=== PATIENT | female | born 1950 | race Asian ===

== ENCOUNTER 2017-11-12 16:54 | Outpatient (CLI) | payer MEDICARE, OTHER | END 2017-11-12 16:55 | disposition critical access hospital (66) | LOC: EMS 16:54 | PROVIDERS: ATTEND Surgery | DX: R41.82 Altered mental status, unspecified (principal); R51 Headache; R73.09 Other abnormal glucose | CPT/HCPCS: A0425; A0427 ==

== ENCOUNTER 2017-11-12 17:13 | Emergency (ER) | payer MEDICARE, OTHER ==
[2017-11-12 17:45] LABS: BILIRUBIN,URINE NEGATIVE (NEGATIVE); GLUCOSE, URINE (UA) 500 mg/dL (NEGATIVE); KETONES,URINE (UA) NEGATIVE (NEGATIVE); LEUKOCYTE ESTERASE, URINE NEGATIVE (NEGATIVE); NITRITE,URINE NEGATIVE (NEGATIVE); OCCULT BLOOD,URINE TRACE-INTA (NEGATIVE); PROTEIN,URINE TRACE mg/dL (NEGATIVE); UROBILINOGEN,URINE 0.2 (NORMAL) E.U./dL (NORMAL)
[2017-11-12 17:48] LABS: CLARITY,URINE CLEAR (CLEAR)
[2017-11-12 17:55] LABS: BASOPHILS # (AUTO) 0.1 10^3/uL (0.0-0.1); EOSINOPHILS % (AUTO) 0.5 %; HGB - HEMOGLOBIN 13.6 g/dL (12.0-16.0); LYMPHOCYTES # (AUTO) 1.2 10^3/uL (1.5-3.5); LYMPHOCYTES % (AUTO) 18.4 %; MEAN CORPUSCULAR HEMOGLOBIN 29.4 pg (27.0-31.0); MEAN CORPUSCULAR HGB CONC 32.6 g/dL (32.0-36.0); MEAN PLATELET VOLUME 8.2 fL (7.9-10.8); MONOCYTES # (AUTO) 0.5 10^3/uL (0.0-1.0); NEUTROPHILS # (AUTO) 4.9 10^3/uL (1.5-6.6); NEUTROPHILS % (AUTO) 73.1 %; PLT - PLATELET COUNT 243 10^3/uL (130-450); RED BLOOD COUNT 4.64 10^6/uL (4.20-5.40); RED CELL DISTRIBUTION WIDTH 13.4 % (12.0-15.0); WHITE BLOOD COUNT 6.6 x10^3/uL (4.8-10.8)
[2017-11-12 18:06] LABS: ALBUMIN 3.9 g/dL (3.2-5.5); ALBUMIN/GLOBULIN RATIO 0.8 (1.0-2.2); BILIRUBIN,TOTAL 0.7 mg/dL (0.2-1.0); CALCIUM 8.5 mg/dL (8.5-10.3); TOTAL PROTEIN 8.5 g/dL (6.7-8.2)
--- NOTE | 2017-11-12 18:31 | ED Physician Documentation ---
History of Present Illness - Stated complaint Stated Complaint: Hypoglycemia - Chief complaint Chief Complaint: Neuro - History obtained from History obtained from: Patient, Family - History of Present Illness Timing: Today Pain level max: 0 Pain level now: 0 Improved by: D50 Worsened by: lantus - Additonal information Additional information: Patient is a 67 year old female who is on long acting insulin (Lantus). Took her dose this am and didn't eat today. Became unresponsive and found to be hypoglycemic. Given D50 with EMS. BG improved and now she is at her normal baseline mental status. Review of Systems Constitutional: denies: Fever, Chills Nose: denies: Rhinorrhea / runny nose, Congestion Throat: denies: Sore throat Cardiac: denies: Chest pain / pressure Respiratory: denies: Cough GI: denies: Nausea, Vomiting, Diarrhea Skin: denies: Rash Musculoskeletal: denies: Neck pain, Back pain Neurologic: denies: Focal weakness, Numbness, Head injury, LOC PD PAST MEDICAL HISTORY - Past Medical History Past Medical History: Yes Endocrine/Autoimmune: Type 2 diabetes - Past Surgical History Past Surgical History: No - Living Situation Living Situation: reports: With family Living Arrangement: reports: At home - Social History Does the pt smoke?: No Does the pt drink ETOH?: No Does the pt have substance abuse?: No - Family History Family history: reports: Non contributory PD ED PE NORMAL - Vitals Vital signs reviewed: Yes - General General: Alert and oriented X 3, No acute distress - HEENT HEENT: PERRL, Moist mucous membranes, Pharynx benign - Neck Neck: Supple, no meningeal sign - Cardiac Cardiac: RRR - Respiratory Respiratory: No respiratory distress, Clear bilaterally - Abdomen Abdomen: Soft, Non tender, Non distended - Back Back: No spinal TTP - Derm Derm: Warm and dry - Neuro Neuro: Alert and oriented X 3, 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5 Chloride 101 Carbon Dioxide 25 Anion Gap 10.0 BUN 17 Creatinine 1.0 Estimated GFR (MDRD) 55 L Glucose 156 H Calcium 8.5 Total Bilirubin 0.7 AST 29 ALT 26 Alkaline Phosphatase 62 Total Protein 8.5 H Albumin 3.9 Globulin 4.6 H Albumin/Globulin Ratio 0.8 L Lipase 34 Urine Color YELLOW Urine Clarity CLEAR Urine pH 6.0 Ur Specific [place] <=1.005 Urine Protein TRACE Urine Glucose (UA) 500 H Urine Ketones NEGATIVE Urine Occult Blood TRACE-INTA Urine Nitrite NEGATIVE Urine Bilirubin NEGATIVE Urine Urobilinogen 0.2 (NORMAL) Ur Leukocyte Esterase NEGATIVE Ur Microscopic Review NOT INDICATED Urine Culture Comments NOT INDICATED PD MEDICAL DECISION MAKING - ED course Complexity details: reviewed results, re-evaluated patient, considered differential, d/w patient, d/w family ED course: Patient is a 67-year-old female who presents to the emergency department with hypoglycemia after taking her insulin today and not eating. Resolved with D50 and eating in the emergency department. No recurrent hypoglycemia. Family is comfortable watching her at home. Family states that she had a history of a brain aneurysm in the past, but it never ruptured and was nonoperable. They were concerned that it may have ruptured today. Patient has a normal neurological examination and no headache. Symptoms resolved with correction of her hypoglycemia. Will hold any head CT at this time. Patient and family counseled regarding signs and symptoms for which I believe and urgent re- evaluation would be necessary. Patient with good understanding of and agreement to plan and is comfortable going home at this time This document was made in part using voice recognition software. While efforts are made to proofread this document, sound alike and grammatical errors may occur. Patient also states that she is chronically hypertensive and her doctor has held her antihypertensive medications at this time in order to "observe her". Departure - Departure Disposition: 01 Home, Self Care Clinical Impression: Hypoglycemia Hypertension Qualifiers: Hypertension type: unspecified Qualified Code(s): I10 - Essential (primary) hypertension Condition: Good Instructions: ED Diabetes Hypoglycemia Insulin React Follow-Up: MELVI TIWARI DO [Primary Care Provider] - Within 3 Days Comments: Make sure to follow-up closely with your doctor about your blood sugar and your high blood pressure. Return if you worsen. Discharge Date/Time: 11/12/17 19:01
[2017-11-12 18:46] VITALS: BP 201/78
== END 2017-11-12 19:01 | disposition home or self-care (01) ==
LOC: EDUNIT# → ED 17:13
DX: E11.649 Type 2 diabetes mellitus with hypoglycemia without coma (principal); Z79.4 Long term (current) use of insulin; I10 Essential (primary) hypertension
CPT/HCPCS: 36415; 80053; 81001; 81003; 83690; 85025; 87086; 99283; 99284

== ENCOUNTER 2023-01-25 08:14 | Outpatient (CLI) | payer MEDICARE, OTHER | END 2023-01-25 08:15 | disposition critical access hospital (66) | LOC: EMS 08:14 | DX: E11.65 Type 2 diabetes mellitus with hyperglycemia (principal); R11.10 Vomiting, unspecified; R00.0 Tachycardia, unspecified; Z79.4 Long term (current) use of insulin | CPT/HCPCS: A0425; A0427 ==

== ENCOUNTER 2023-01-25 08:36 | Emergency (ER) | payer MEDICARE, OTHER ==
[2023-01-25] MEDS ORDERED: SODIUM CHLORIDE 0.9% 1,000 ML IV STA ×2 (08:42→11:08)
--- NOTE | 2023-01-25 08:45 | ED Physician Documentation ---
History of Present Illness - Stated complaint Stated Complaint: DIABETIC ISSUE - History obtained from History obtained from: Patient, Family, EMS - Additonal information Additional information: Patient is a 72-year-old female who is an insulin-dependent diabetic presenting for evaluation of high blood sugar reading this morning. Per EMS, patient's daughter came to check on her and noted that her blood sugar was elevated at 299. EMS stated that daughter gave it to 50 units of insulin (unclear if short or long-acting). EMS glucose readings were in the 300s.Patient reportedly lives alone and did have an episode of emesis this morning. Per daughter who is currently at the bedside, patient had a head cold last week. Daughter was away from Monday to Monday and when she went to check on her again on Monday patient seemed weaker and more confused. This morning Patient had chills and daughter checked blood sugar which was elevated. She gave her 50 units of what she believes is long-acting insulin.She did have an episode of emesis this morning. Review of Systems Constitutional: denies: Fever Cardiac: denies: Chest pain / pressure Respiratory: denies: Dyspnea GI: denies: Abdominal Pain : denies: Dysuria Neurologic: reports: Generalized weakness PD PAST MEDICAL HISTORY - Past Medical History Endocrine/Autoimmune: Type 2 diabetes - Past Surgical History Past Surgical History: No - Allergies Allergies/Adverse Reactions: Allergies Allergy/AdvReac Type Severity Reaction Status Date / Time No Known Drug Allergies Allergy Verified 01/25/23 08:52 - Social History Does the pt smoke?: No Does the pt drink ETOH?: No Does the pt have substance abuse?: No PD ED PE NORMAL - General General: Alert and oriented X 3, No acute distress, Well developed/nourished - HEENT HEENT: Atraumatic - Neck Neck: Supple, no meningeal sign - Cardiac Cardiac: RRR, No murmur - Respiratory Respiratory: No respiratory distress, Clear bilaterally - Abdomen Abdomen: Soft, Non tender, Non distended - Derm Derm: Warm and dry - Extremities Extremities: No edema - Neuro Neuro: Alert and oriented X 3, gasoline power shovel operator 2-12 intact, No motor deficit, Normal speech Results - Vitals Vitals: Vital Signs - 24 hr 01/25/23 01/25/23 01/25/23 08:41 10:08 11:06 Temperature 37.7 C Heart Rate 103 H 89 91 Respiratory 14 23 22 Rate Blood Pressure 99/53 L 84/54 L 83/57 L O2 Saturation 98 92 96 01/25/23 01/25/23 01/25/23 12:16 12:37 13:01 Temperature Heart Rate 127 H 128 H 122 H Respiratory 19 20 19 Rate Blood Pressure 174/66 H 163/72 H 134/87 H O2 Saturation 98 98 01/25/23 13:13 Temperature Heart Rate 120 H Respiratory 20 Rate Blood Pressure 183/87 H O2 Saturation 98 Oxygen O2 Source Room air - EKG (time done) 0852 EKG releavant findings:: EKG personally interpreted by author of this note. Relevant findings are: Rate 100, sinus tachycardia, no STEMI, no ST depressions Rate: Rate (enter#) (100) Rhythm: Sinus tachycardia Intervals: No: Prolonged QT Ischemia: No: ST elevation c/w ischemia - Labs Labs: Laboratory Tests 01/25/23 01/25/23 01/25/23 08:51 08:51 08:51 WBC 15.9 H RBC 3.52 L Hgb 10.7 L Hct 32.5 L MCV 92.3 MCH 30.4 MCHC 32.9 RDW 12.2 Plt Count 271 MPV 10.5 Neut # (Auto) 14.7 H Lymph # (Auto) 0.3 L [place] # (Auto) 0.7 Eos # (Auto) 0.0 Baso # (Auto) 0.1 Absolute Nucleated RBC 0.00 Nucleated RBC % 0.0 RBC Morph Micro Appear 1+ ANISOCYTOSIS VBG pH 7.439 H VBG pCO2 32.8 L VBG pO2 30.3 VBG HCO3 21.7 L VBG Total CO2 22.7 L VBG O2 Saturation 64.6 VBG Base Excess -1.8 Sodium 128 L Potassium 3.7 Chloride 97 L Carbon Dioxide 21 Anion Gap 10.0 BUN 39 H Creatinine 2.4 H Estimated GFR (MDRD) 20 L Glucose 398 H Lactic Acid Calcium 7.6 L Total Bilirubin 1.8 H AST 48 H ALT 39 Alkaline Phosphatase 90 Total Protein 7.0 Albumin 2.3 L Globulin 4.7 H Albumin/Globulin Ratio 0.5 L Lipase 29 Urine Color Urine Clarity Urine pH Ur Specific [place] Urine Protein Urine Glucose (UA) Urine Ketones Urine Occult Blood Urine Nitrite Urine Bilirubin Urine Urobilinogen Ur Leukocyte Esterase Urine RBC Urine WBC Ur Squamous Epith Cells Urine Bacteria Ur Microscopic Review Urine Culture Comments Nasal Adenovirus (PCR) Nasal B. parapertussis DNA (PCR) Nasal Coronavir 229E PCR Nasal Coronavir HKU1 PCR Nasal Coronavir NL63 PCR Nasal Coronavir OC43 PCR Nasal Enterovir/Rhinovir PCR Nasal Influenza B PCR Nasal Influenza A PCR Nasal Parainfluen 1 PCR Nasal Parainfluen 2 PCR Nasal Parainfluen 3 PCR Nasal Parainfluen 4 PCR Nasal RSV (PCR) Nasal B.pertussis DNA PCR Nasal C.pneumoniae (PCR) Daren Human Metapneumo PCR Nasal M.pneumoniae (PCR) Nasal SARS-CoV-2 (PCR) Serum Ketones NEGATIVE 01/25/23 01/25/23 01/25/23 09:45 10:38 10:58 WBC RBC Hgb Hct MCV MCH MCHC RDW Plt Count MPV Neut # (Auto) Lymph # (Auto) [place] # (Auto) Eos # (Auto) Baso # (Auto) Absolute Nucleated RBC Nucleated RBC % RBC Morph Micro Appear VBG pH VBG pCO2 VBG pO2 VBG HCO3 VBG Total CO2 VBG O2 Saturation VBG Base Excess Sodium Potassium Chloride Carbon Dioxide Anion Gap BUN Creatinine Estimated GFR (MDRD) Glucose Lactic Acid 1.8 Calcium Total Bilirubin AST ALT Alkaline Phosphatase Total Protein Albumin Globulin Albumin/Globulin Ratio Lipase Urine Color DARK YELLOW Urine Clarity SL. CLOUDY Urine pH 5.0 Ur Specific [place] >=1.030 H Urine Protein 100 H Urine Glucose (UA) 250 H Urine Ketones NEGATIVE Urine Occult Blood MODERATE H Urine Nitrite NEGATIVE Urine Bilirubin NEGATIVE Urine Urobilinogen 4 H Ur Leukocyte Esterase MODERATE H Urine RBC 0-5 Urine WBC >25 H Ur Squamous Epith Cells NONE SEEN Urine Bacteria Many H Ur Microscopic Review INDICATED Urine Culture Comments INDICATED Nasal Adenovirus (PCR) NOT DETECTED Nasal B. parapertussis DNA (PCR) NOT DETECTED Nasal Coronavir 229E PCR NOT DETECTED Nasal Coronavir HKU1 PCR NOT DETECTED Nasal Coronavir NL63 PCR NOT DETECTED Nasal Coronavir OC43 PCR NOT DETECTED Nasal Enterovir/Rhinovir PCR NOT DETECTED Nasal Influenza B PCR NOT DETECTED Nasal Influenza A PCR NOT DETECTED Nasal Parainfluen 1 PCR NOT DETECTED Nasal Parainfluen 2 PCR NOT DETECTED Nasal Parainfluen 3 PCR NOT DETECTED Nasal Parainfluen 4 PCR NOT DETECTED Nasal RSV (PCR) NOT DETECTED Nasal B.pertussis DNA PCR NOT DETECTED Nasal C.pneumoniae (PCR) NOT DETECTED Daren Human Metapneumo PCR NOT DETECTED Nasal M.pneumoniae (PCR) NOT DETECTED Nasal SARS-CoV-2 (PCR) NOT DETECTED Serum Ketones Procedures - Central Line - Major Central Line Preparation: Consent Obtained, Ultrasound used, Sterile prep and drape Central line location: Right IJ Central line type: Triple lumen Central line aftercare: Chlorhexidine disc placed, Secured, Placement confirmed, No pneumothorax, No complications, Pt tolerated well PD Medical Decision Making - ED course Complexity details: reviewed results, re-evaluated patient, d/w patient, d/w family ED course: Patient is a 72-year-old female presenting for evaluation of high blood glucose as well as nausea and vomiting. She is noted to be hypotensive upon arrival. Labs reviewed including CBC, chemistries, lactic, urine analysis. Labs are significant for Elevated creatinine of 2.4 which is significantly elevated from her baseline of 1.0 in 2018.Leukocytosis of 15. Normal lactic.Urine analysis is suggestive of an infection.Her abdominal exam is benign but given the nausea and vomiting and hypotension I did obtain a CT scan which demonstrates a left ureter stone. Patient appears to be septic from her stone. She is started on antibiotics. She did receive 2 L of IV fluid boluses. She did have soft blood pressures and was on low-dose Levophed. I did place a central line. I did consult with [facility] urology who will consult on the patient And she was transferred to [facility] ICU. 1132 - D/W Dr. Francis ([facility]rology) - He would be able to consult on the patient if there are beds available. He is unsure what their bed status is today. 1156 - D/W Dr. Amaya ([facility]) - Accepted for transfer. Reviewed that patient is hypotensive and is currently on Levophed. - Critical Care Time(min): 32 Time Includes: Direct patient care, Review records, Reassess patient Procedures excluded from critical care time: Central IV Departure - Departure Disposition: 02 Transfer Acute Care Hosp Clinical Impression: Septic shock, Ureteral stone, UTI (urinary tract infection) Condition: Serious Discharge Date/Time: 01/25/23 13:30
[2023-01-25 08:58] LABS: BASOPHILS # (AUTO) 0.1 10^3/uL (0.0-0.1); BASOPHILS % (AUTO) 0.6 %; EOSINOPHILS % (AUTO) 0.1 %; HCT - HEMATOCRIT 32.5 % (37.0-47.0); HGB - HEMOGLOBIN 10.7 g/dL (12.0-16.0); LYMPHOCYTES # (AUTO) 0.3 10^3/uL (1.5-3.5); LYMPHOCYTES % (AUTO) 1.6 %; MEAN CORPUSCULAR HEMOGLOBIN 30.4 pg (27.0-31.0); MEAN CORPUSCULAR HGB CONC 32.9 g/dL (32.0-36.0); MEAN CORPUSCULAR VOLUME 92.3 fL (81.0-99.0); MEAN PLATELET VOLUME 10.5 fL (7.9-10.8); MONOCYTES # (AUTO) 0.7 10^3/uL (0.0-1.0); MONOCYTES % (AUTO) 4.2 %; NEUTROPHILS # (AUTO) 14.7 10^3/uL (1.5-6.6); NEUTROPHILS % (AUTO) 92.3 %; PLT - PLATELET COUNT 271 10^3/uL (130-450); RED BLOOD COUNT 3.52 10^6/uL (4.20-5.40); RED CELL DISTRIBUTION WIDTH 12.2 % (12.0-15.0); WHITE BLOOD COUNT 15.9 x10^3/uL (4.8-10.8)
[2023-01-25 09:15] LABS: ALBUMIN 2.3 g/dL (3.2-5.5); ALBUMIN/GLOBULIN RATIO 0.5 (1.0-2.2); ALKALINE PHOSPHATASE 90 IU/L (42-121); ALT ALANINE AMINOTRANSFERASE 39 IU/L (10-60); AST ASPARTATE AMINOTRANSFERASE 48 IU/L (10-42); BILIRUBIN,TOTAL 1.8 mg/dL (0.2-1.0); BUN - BLOOD UREA NITROGEN 39 mg/dL (6-20); CALCIUM 7.6 mg/dL (8.5-10.3); CARBON DIOXIDE - CO2 21 mmol/L (21-32); CHLORIDE 97 mmol/L (101-111); CREATININE 2.4 mg/dL (0.4-1.0); GFR - MDRD 20 (>89); GLUCOSE 398 mg/dL (70-100); LIPASE 29 U/L (22-51); POTASSIUM 3.7 mmol/L (3.5-5.0); SODIUM 128 mmol/L (135-145)
[2023-01-25 09:16] LABS: VBG HCO3 21.7 mmol/L (23-28); VBG PCO2 32.8 mmHg (41-51); VBG PH 7.439 (7.31-7.41); VBG PO2 30.3 mmHg (25-47)
[2023-01-25 09:17] LABS: KETONES, SERUM (ACETEST) NEGATIVE (NEGATIVE); VBG BASE EXCESS -1.8 mmol/L (-2 - +2); VBG OXYGEN SATURATION 64.6 % (60-80); VBG TOTAL CO2 22.7 mmol/L (24-29)
[2023-01-25 09:35] LABS: RBC MORPHOLOGY (MULTIPLE) 1+ ANISOCYTOSIS (NORMAL)
[2023-01-25 10:50] LABS: BILIRUBIN,URINE NEGATIVE (NEGATIVE); GLUCOSE, URINE (UA) 250 mg/dL (NEGATIVE); KETONES,URINE (UA) NEGATIVE (NEGATIVE); LEUKOCYTE ESTERASE, URINE MODERATE (NEGATIVE); NITRITE,URINE NEGATIVE (NEGATIVE); OCCULT BLOOD,URINE MODERATE (NEGATIVE); PROTEIN,URINE 100 mg/dL (NEGATIVE); UROBILINOGEN,URINE 4 E.U./dL (NORMAL)
--- NOTE | 2023-01-25 10:50 | XRAY Report ---
PROCEDURE: Chest 1 View X-Ray INDICATIONS: weakness TECHNIQUE: One view of the chest was acquired. COMPARISON: None. FINDINGS: Surgical changes and devices: None. Lungs and pleura: No pleural effusions or pneumothorax. Lungs are clear. Mediastinum: Mediastinal contours appear normal. Heart size is normal. Bones and chest wall: No suspicious bony lesions. Overlying soft tissues appear unremarkable. IMPRESSION: No acute cardiopulmonary process. Reviewed by: Jose Stewart MD on 01/25/2023 10:49 AM PDT Approved by: Jose Stewart MD on 01/25/2023 10:49 AM PDT Station ID: [id number]
[2023-01-25 10:51] LABS: CLARITY,URINE SL. CLOUDY (CLEAR)
--- NOTE | 2023-01-25 10:58 | CT Report ---
PROCEDURE: ABDOMEN/PELVIS WO INDICATIONS: Jess/vomiting TECHNIQUE: Noncontrast 5 mm thick sections acquired from the diaphragms to the symphysis. 5 mm coronal and sagi ttal reformats were then performed. For radiation dose reduction, the following was used: automated exposure control, adjustment of mA and/or kV according to patient size. COMPARISON: None. FINDINGS: Image quality: Excellent. Lung bases and heart: Mild bibasilar dependent change. Mild cardiomegaly. Moderate to severe coronary artery calcifications. Liver: No solid mass. Gallbladder and biliary tree: Question minimally radiodense gallstones versus gravel no gallbladder w all thickening. Spleen: No splenomegaly. Pancreas: No pancreatic ductal dilation. Adrenals: No adrenal nodule. Kidneys and ureters: There is a 3 mm stone obstructing the left ureter at the left ureterovesical sisi ction with resultant moderate left hydronephrosis. There is a 4 mm nonobstructing left lower pole dana al stone. No right renal stone or hydronephrosis. Bowel and peritoneum: No bowel distension. No pathologic free fluid. Lymph nodes: No central or retroperitoneal adenopathy. Vessels: No infrarenal aortic aneurysm. Diffuse infrarenal abdominal aortic calcifications and common iliac artery calcifications. PELVIS Reproductive organs: Unremarkable. Bladder: Mild diffuse bladder wall thickening. Pelvic lymph nodes: No pelvic adenopathy by size criteria. Bones: No aggressive osseous abnormality. Old T12 compression. Old minimal superior endplate compress ions of T9 and T10. Other: No significant ventral or inguinal hernia. IMPRESSION: 1. A 3 mm stone obstructs the left ureter at the left ureterovesical junction resulting in moderate l eft hydronephrosis. 2. There is also a 4 mm nonobstructing left lower pole.. 3. Question minimally radiodense gravel versus tiny stones in the gallbladder. 4. Mild cardiomegaly, moderate to severe coronary artery calcifications. 5. Multiple chronic compression fractures. Suspect osteoporosis. 6. Mild bladder wall thickening. Reviewed by: Jose Stewart MD on 01/25/2023 10:57 AM PDT Approved by: Jose Stewart MD on 01/25/2023 10:57 AM PDT Station ID: [id number]
[2023-01-25 11:12] LABS: BACTERIA,URINE Many /HPF (None Seen); RBC,URINE 0-5 /HPF (0-5); SQUAMOUS EPITHELIAL CELL,UR NONE SEEN (<= Few); WBC,URINE >25 /HPF (0-5)
[2023-01-25] MEDS ORDERED: cefTRIAXone 1 GM VIAL IVP STA (11:15)
[2023-01-25 11:17] LABS: B. PARAPERTUSSIS- RESP PCR PAN NOT DETECTED; B. PERTUSSIS- RESP PCR PANEL NOT DETECTED; C. PNEUMONIAE- RESP PCR PANEL NOT DETECTED; CORONAVIRUS 229E-RESP PCR NOT DETECTED; CORONAVIRUS HKU1-RESP PCR NOT DETECTED; CORONAVIRUS NL63-RESP PCR NOT DETECTED; CORONAVIRUS OC43-RESP PCR NOT DETECTED; HUMAN METAPNEUMOVIRUS NOT DETECTED; INFLUENZA A- RESP PCR PANEL NOT DETECTED; INFLUENZA B - RESP PCR PANEL NOT DETECTED; M. PNEUMONIAE- RESP PCR PANEL NOT DETECTED; PARAINFLUENZA VIRUS 1 NOT DETECTED; PARAINFLUENZA VIRUS 2 NOT DETECTED; PARAINFLUENZA VIRUS 3 NOT DETECTED; PARAINFLUENZA VIRUS 4 NOT DETECTED; RHINOVIRUS/ENTEROVIRUS NOT DETECTED; RSV- RESP PCR PANEL NOT DETECTED; SARS-CoV-2 -RESP PCR PANEL NOT DETECTED
[2023-01-25] MEDS ORDERED: NOREPINEPHRINE/D5W 8 MG/250 ML BAG IV SCH (12:00)
[2023-01-25 13:16] VITALS: BP 183/87
--- NOTE | 2023-01-25 14:03 | XRAY Report ---
PROCEDURE: Chest for Line Placement INDICATIONS: CVC TECHNIQUE: One view of the chest was acquired. COMPARISON: CXR earlier today. FINDINGS: Surgical changes and devices: Right IJ central venous line with the catheter tip at the right atrium .. Lungs and pleura: No pleural effusions or pneumothorax. Lungs appear clear. Mediastinum: Mediastinal contours appear unchanged. Heart size is normal. Bones and chest wall: No suspicious bony lesions. Overlying soft tissues appear unremarkable. IMPRESSION: Right IJ central venous line with the catheter tip at the right atrium. Reviewed by: David Dickson MD on 01/25/2023 2:01 PM PDT Approved by: David Dickson MD on 01/25/2023 2:01 PM PDT Station ID: [id number]
== END 2023-01-25 13:30 | disposition short-term general hospital (02) ==
LOC: EDUNIT# → EDSEX → ED 08:36
DX: N39.0 Urinary tract infection, site not specified (principal); R65.21 Severe sepsis with septic shock; N20.1 Calculus of ureter; E11.9 Type 2 diabetes mellitus without complications; Z79.4 Long term (current) use of insulin; Z20.822 Contact with and (suspected) exposure to COVID-19
CPT/HCPCS: 36415; 36556; 80053; 81001; 81003; 82009; 82803; 83605; 83690; 85025; 87040; 87077; 87086; 87150; 87181; 87633; 93005; 99291

== ENCOUNTER 2023-01-25 13:32 | Outpatient (CLI) | payer MEDICARE, OTHER | END 2023-01-25 23:59 | disposition short-term general hospital (02) | LOC: EMS 13:32 | PROVIDERS: ATTEND Emergency Medicine | DX: A41.9 Sepsis, unspecified organism (principal); N20.1 Calculus of ureter | CPT/HCPCS: A0425; A0426 ==

== ENCOUNTER 2024-03-18 16:15 | Emergency (ER) | payer MEDICARE, OTHER ==
[2024-03-18 17:16] LABS: BASOPHILS # (AUTO) 0.1 10^3/uL (0.0-0.1); BASOPHILS % (AUTO) 0.6 %; EOSINOPHILS # (AUTO) 0.2 10^3/uL (0.0-0.7); EOSINOPHILS % (AUTO) 1.5 %; HCT - HEMATOCRIT 39.6 % (37.0-47.0); HGB - HEMOGLOBIN 12.8 g/dL (12.0-16.0); LYMPHOCYTES # (AUTO) 1.4 10^3/uL (1.5-3.5); LYMPHOCYTES % (AUTO) 11.9 %; MEAN CORPUSCULAR HEMOGLOBIN 30.3 pg (27.0-31.0); MEAN CORPUSCULAR HGB CONC 32.3 g/dL (32.0-36.0); MEAN CORPUSCULAR VOLUME 93.6 fL (81.0-99.0); MEAN PLATELET VOLUME 10.6 fL (7.9-10.8); MONOCYTES # (AUTO) 0.9 10^3/uL (0.0-1.0); MONOCYTES % (AUTO) 7.3 %; NEUTROPHILS # (AUTO) 9.3 10^3/uL (1.5-6.6); NEUTROPHILS % (AUTO) 78.4 %; PLT - PLATELET COUNT 201 10^3/uL (130-450); RED BLOOD COUNT 4.23 10^6/uL (4.20-5.40); RED CELL DISTRIBUTION WIDTH 12.4 % (12.0-15.0); WHITE BLOOD COUNT 11.9 x10^3/uL (4.8-10.8)
[2024-03-18 17:31] LABS: ALBUMIN 4.3 g/dL (3.2-5.5); ALBUMIN/GLOBULIN RATIO 1.1 (1.0-2.2); ALKALINE PHOSPHATASE 71 IU/L (42-121); ALT ALANINE AMINOTRANSFERASE 22 IU/L (10-60); AST ASPARTATE AMINOTRANSFERASE 26 IU/L (10-42); BILIRUBIN,TOTAL 0.8 mg/dL (0.2-1.0); BUN - BLOOD UREA NITROGEN 21 mg/dL (6-20); CALCIUM 9.5 mg/dL (8.5-10.3); CARBON DIOXIDE - CO2 22 mmol/L (21-32); CHLORIDE 105 mmol/L (101-111); CREATININE 2.3 mg/dL (0.6-1.3); GFR - MDRD 21 (>89); GLUCOSE 110 mg/dL (74-104); SODIUM 135 mmol/L (135-145); TOTAL PROTEIN 8.1 g/dL (6.4-8.9)
[2024-03-18 17:43] LABS: LIPASE < 10 U/L (11-82)
--- NOTE | 2024-03-18 18:55 | ED Physician Documentation ---
PD HPI FEMALE - Stated complaint Stated Complaint: - Chief complaint Chief Complaint: Abd Pain - Additional information Additional information: 73-year-old female presents emergency department for right lower quadrant pain and tenderness as well as constipation for the last 2 days. She was recently treated for urinary tract infection she completed full course of Keflex.. Patient's daughter is at bedside she says is difficult to differentiate if she has been confused versus being hard of hearing. Patient has very broad generalized complaints saying that she is feeling generalized malaise. Daughter reports that there is also possibility that she could be fighting the flu as she has been having recent cough congestion upper respiratory infection symptoms. Patient is overall poor historian and difficult to gather much history from her due to how hard time she has hearing. PD PAST MEDICAL HISTORY - Past Medical History Endocrine/Autoimmune: Type 2 diabetes - Past Surgical History Past Surgical History: No - Allergies Allergies/Adverse Reactions: Allergies Allergy/AdvReac Type Severity Reaction Status Date / Time No Known Drug Allergies Allergy Verified 03/18/24 16:36 - Social History Does the pt smoke?: No Smoking Status: Never smoker Does the pt drink ETOH?: No Does the pt have substance abuse?: No PD ED PE NORMAL - Vitals Vital signs reviewed: Yes - General General: Alert and oriented X 3, No acute distress, Well developed/nourished - HEENT HEENT: Atraumatic, PERRL - Cardiac Cardiac: RRR - Respiratory Respiratory: No respiratory distress, Clear bilaterally - Abdomen Abdomen: Normal bowel sounds, Soft, Non tender, Non distended, No organomegaly - Back Back: No CVA TTP - Derm Derm: Normal color, Warm and dry, No rash - Extremities Extremities: No edema Results - Vitals Vitals: Vital Signs - 24 hr 03/18/24 03/18/24 03/18/24 20:54 22:00 22:28 Heart Rate 104 H 110 H 98 Respiratory 16 18 16 Rate Blood Pressure 160/70 H 121/83 H 130/70 O2 Saturation 98 96 99 Oxygen O2 Source Room air - Labs Labs: Laboratory Tests 03/18/24 03/18/24 03/18/24 17:08 17:08 19:30 WBC 11.9 H RBC 4.23 Hgb 12.8 Hct 39.6 MCV 93.6 MCH 30.3 MCHC 32.3 RDW 12.4 Plt Count 201 MPV 10.6 Neut # (Auto) 9.3 H Lymph # (Auto) 1.4 L Bond # (Auto) 0.9 Eos # (Auto) 0.2 Baso # (Auto) 0.1 Absolute Nucleated RBC 0.00 Nucleated RBC % 0.0 Sodium 135 Potassium 4.0 Chloride 105 Carbon Dioxide 22 Anion Gap 8.0 BUN 21 H Creatinine 2.3 H Estimated GFR (MDRD) 21 L Glucose 110 H Calcium 9.5 Total Bilirubin 0.8 AST 26 ALT 22 Alkaline Phosphatase 71 Total Protein 8.1 Albumin 4.3 Globulin 3.8 Albumin/Globulin Ratio 1.1 Lipase < 10 L Urine Color YELLOW Urine Clarity HAZY Urine pH 6.5 Ur Specific [place] 1.020 Urine Protein 100 H Urine Glucose (UA) NEGATIVE Urine Ketones NEGATIVE Urine Occult Blood MODERATE H Urine Nitrite NEGATIVE Urine Bilirubin NEGATIVE Urine Urobilinogen 1 (NORMAL) Ur Leukocyte Esterase NEGATIVE Urine RBC 0-5 Urine WBC 4-5 Urine WBC Clumps PRESENT Ur Squamous Epith Cells MANY Squamous H Amorphous Sediment Rare Urine Bacteria Many H Urine Casts 3-5 Granular Casts Ur Microscopic Review INDICATED Urine Culture Comments NOT INDICATED - Rads (name of study) Abdomen pelvis CT without con Relevant Findings:: Final report received, EMP independent interpretation of test, Other (No hydronephrosis or obstructing renal stone. Mildly distended gallbladder with possible tiny punctate gallstone no evidence of pericholecystic stranding or wall thickening. Enlarged urinary bladder with wall thickening.) PD Medical Decision Making - ED course ED course: 73-year-old female presents emergency department for multiple complaints. Daughter was originally concern for possible recurrent urinary tract infection based on patient complaining of generalized malaise. CBC was complete she has very mild leukocytosis, 11.9, she appears to have chronic kidney disease her BUN today is 21, creatinine 2.3, GFR 21 still making urine. Unsure what patient's baseline is as she is a patient at the [facility], last GFR was in December 2022 and GFR was found to be 20. Urinalysis does not show any leukocytes or nitrites making me less suspicious for possible urinary tract infection. CT abdomen pelvis is complete for further evaluation of patient's broad complaints and she does not have any hydronephrosis or obstructing renal calculi. Normal appendix she does have a distended urinary bladder with wall thickening although I do not believe that that she does have a urinary tract infection based on her urine. She does have a slightly distended gallbladder with possible tiny punctate gallstone. No evidence of stranding or wall thickening. Her lipase is within normal limits. Daughter was informed of these findings and would like to pursue outpatient ultrasound for further evaluation of this is patient Appears to be quite nonacute. She remains afebrile here hemodynamically stable. Patient's daughter has very close contact with her primary care provider outpatient and says that they would like to discharge at this point in time given the unremarkable workup. They were given strict ER return precautions all questions answered patient safe for discharge at this time. Departure - Departure Disposition: Home, Self Care Clinical Impression: Fever Instructions: ED Fever Control, ED URI Viral Comments: We have completed labs as well as a urinalysis on your mother and we are not e ntirely convinced what is causing her fevers at this time but it is likely due to an upper respiratory infection/virus. She does have a very mild white count although we have repeated her urine and she does not appear to have a urinary tract infection. She also appears to have chronic kidney disease and her kidney function has gotten worse since the last time she has been here over a year ago but not sure what her kidney function is at baseline. Encouraged her to drink plenty of fluids at home Tylenol ibuprofen for any fevers and chills and please have a very low threshold to come back to the ER if she is having any worsening symptoms or if she is continuing to have fevers. We have completed blood cultures we will call you in a couple days if she needs to come back to the emergency department or check back into the hospital for possible IV antibiotics. Again please have a very low threshold to come back to the emergency department if your mom appears to be getting any worse in any way shape or form even if it is as soon as tomorrow. Forms: PCP List Discharge Date/Time: 03/18/24 22:28
[2024-03-18 19:58] LABS: BILIRUBIN,URINE NEGATIVE (NEGATIVE); GLUCOSE, URINE (UA) NEGATIVE (NEGATIVE); KETONES,URINE (UA) NEGATIVE (NEGATIVE); LEUKOCYTE ESTERASE, URINE NEGATIVE (NEGATIVE); NITRITE,URINE NEGATIVE (NEGATIVE); OCCULT BLOOD,URINE MODERATE (NEGATIVE); PH,URINE 6.5 PH (5.0-7.5); PROTEIN,URINE 100 mg/dL (NEGATIVE); UROBILINOGEN,URINE 1 (NORMAL) E.U./dL (NORMAL)
[2024-03-18 20:11] LABS: CLARITY,URINE HAZY (CLEAR)
[2024-03-18 20:13] LABS: AMORPHOUS SEDIMENT,UR Rare /LPF; BACTERIA,URINE Many /HPF (None Seen); CASTS, URINE 3-5 Granular Casts /LPF; RBC,URINE 0-5 /HPF (0-5); SQUAMOUS EPITHELIAL CELL,UR MANY Squamous (<= Few); WBC CLUMPS,URINE PRESENT
--- NOTE | 2024-03-18 20:57 | CT Report ---
PROCEDURE: Abdomen/Pelvis WO INDICATIONS: generalized abdominal pain TECHNIQUE: A CT scan of the abdomen and pelvis was performed without the use of intravenous contrast. Images we re recorded and evaluated at appropriate window settings. Reformats: coronal and sagittal. For radiat ion dose reduction, the following was used: automated exposure control, adjustment of mA and/or kV ac cording to patient size. COMPARISON: 01/25/2023. FINDINGS: Image quality: Diagnostic. Lower chest: Bibasilar atelectasis versus scarring. Coronary atherosclerosis. Liver: No contour-deforming mass. Gallbladder: Gallbladder appears distended. Possible punctate densities noted in the gallbladder fund us. No pericholecystic stranding identified. Biliary tree: No intrahepatic or extrahepatic dilation, accounting for age. Spleen: No splenomegaly. Pancreas: No pancreatic ductal dilation. No peripancreatic inflammatory changes. Adrenals: No adrenal nodule. Kidneys and ureters: No hydronephrosis. No contour-deforming mass. Stomach, bowel and peritoneum: No gastric or small bowel dilation. No abnormal wall thickening. No pa thologic free fluid. Normal appendix. Moderate fecal material scattered throughout the colon but part icularly dense near the rectum. Lymph nodes: No central or retroperitoneal adenopathy. Vessels: No infrarenal aortic aneurysm. Atherosclerosis. Reproductive organs: Unremarkable. Bladder: Mild circumferential urinary bladder wall thickening slightly more pronounced than expected for degree of bladder distention. No perivesicular stranding.. No calcified bladder stones. Pelvic lymph nodes: No adenopathy by size criteria. Bones: No aggressive osseous abnormality. No acute compression fractures. Stable appearance of multip le chronic compression deformities of the lower thoracic spine. Multilevel spondylosis. Other: No significant ventral or inguinal hernia. IMPRESSION: No hydronephrosis or obstructing renal stone. Normal appendix. Distended gallbladder with possible tiny punctate gallstone. No evidence for pericholecystic strandin g or wall thickening. Recommend clinical correlation for right upper quadrant tenderness. Consider fu rther evaluation with ultrasound is indicated. Greater than expected urinary bladder wall thickening for degree of distention. Recommend clinical/la boratory correlation for possible cystitis. Atherosclerosis. Reviewed by: Livan Lorenzo MD on 03/18/2024 8:56 PM PDT Approved by: Livan Lorenzo MD on 03/18/2024 8:56 PM PDT Station ID: [id number]
[2024-03-18] MEDS: ACETAMINOPHEN 500 MG TABLET PO STA (21:59)
[2024-03-18 22:41] VITALS: BP 130/70; O2SAT 99
== END 2024-03-18 22:28 | disposition home or self-care (01) ==
LOC: ED 16:15
DX: R50.9 Fever, unspecified (principal); R10.31 Right lower quadrant pain; R53.1 Weakness; E11.9 Type 2 diabetes mellitus without complications
CPT/HCPCS: 36415; 74176; 80053; 81001; 83690; 85025; 87040; 99284; A9270; 81003; 87086